=== PATIENT | male | born 2000 | race Asian ===

== ENCOUNTER 2021-09-29 21:55 | Inpatient (IN) | payer OTHER ==
[~2021-09-29] VITALS: Ht 160 cm; Wt 65.3 kg
[2021-09-29 22:00] VITALS: BP 112/76
[2021-09-30] MEDS ORDERED: PSYLLIUM SEED PACKET PO PRN
[2021-09-30] MEDS ORDERED: HYDRALAZINE 20MG/ML VIAL IV PRN
[2021-09-30] MEDS ORDERED: NALOXONE HCL 0.4 MG/ML 1ML VIAL IV PRN
[2021-09-30] MEDS ORDERED: NON FORMULARY PATIENT HOME MED XX SCH
[2021-09-30] MEDS ORDERED: ONDANSETRON HCL 4MG/2ML INJ IV PRN
[2021-09-30] MEDS ORDERED: OXYCODONE HCL 5MG TABLET PO PRN
[2021-09-30] MEDS ORDERED: CYCLOBENZAPRINE 10MG TABLET PO PRN
[2021-09-30] MEDS ORDERED: ACETAMINOPHEN 325MG TABLET PO PRN
[2021-09-30] MEDS ORDERED: HYDRALAZINE 10 MG in SODIUM CHLORIDE 0.9% 49.5 ML IV PRN (00:15)
[2021-09-30] MEDS ORDERED: HYDRALAZINE 5 MG in SODIUM CHLORIDE 0.9% 49.5 ML IV PRN (00:15)
[2021-09-30 06:33] LABS: CHLORIDE 103 mEq/L (98-107)
[2021-09-30 06:50] LABS: BASOPHILS % 1.1 % (0.0-2.0); EOSINOPHILS % 3.6 % (0.0-5.0); HEMATOCRIT. 39.5 % (42.0-52.0); HEMOGLOBIN. 13.8 g/dL (14.0-18.0); LYMPHOCYTES % 33.3 % (20.0-50.0); MEAN CORPUSCULAR HEMOGLOBIN 31.5 pg (28.0-32.0); MEAN CORPUSCULAR VOLUME 90.2 fL (80.0-94.0); MEAN PLATELET VOLUME 8.4 fl (7.4-10.4); MONOCYTES % 6.6 % (2.0-8.0); NEUTROPHILS % 55.4 % (40.0-76.0); PLATELET 304 x1000/uL (130-400); RED BLOOD CELL COUNT 4.37 mill/uL (4.7-6.1); RED CELL DISTRIBUTION WIDTH 14.3 % (11.6-14.6)
[2021-09-30 08:00] VITALS: BP 106/54
[2021-09-30] MEDS: QUETIAPINE FUMARATE 50MG TABLET PO SCH ×2 (08:32→20:30)
[2021-09-30] MEDS: PROPRANOLOL HCL 10MG TABLET PO SCH ×3 (08:38→17:00)
[2021-09-30] MEDS: ENOXAPARIN 30MG/0.3ML SYR SUBCUT SCH ×2 (11:53→20:30)
[2021-09-30 20:00] VITALS: BP 105/61
[2021-10-01] MEDS: BISACODYL 10MG SUPP PR PRN (05:50)
[2021-10-01 08:00] VITALS: BP 103/65
[2021-10-01] MEDS: PROPRANOLOL HCL 10MG TABLET PO SCH ×3 (09:00→17:00)
[2021-10-01] MEDS: QUETIAPINE FUMARATE 50MG TABLET PO SCH ×2 (09:51→20:07)
[2021-10-01] MEDS: ENOXAPARIN 30MG/0.3ML SYR SUBCUT SCH (09:53)
[2021-10-01] MEDS: POLYETHYLENE GLYCOL 3350 (17GM) 1 DOSE PACK PO PRN (09:53)
[2021-10-01 16:16] LABS: BASOPHILS % 1.5 % (0.0-2.0); EOSINOPHILS % 3.3 % (0.0-5.0); HEMATOCRIT. 41.2 % (42.0-52.0); HEMOGLOBIN. 13.9 g/dL (14.0-18.0); LYMPHOCYTES % 36.6 % (20.0-50.0); MEAN CORPUSCULAR HEMOGLOBIN 31.2 pg (28.0-32.0); MEAN CORPUSCULAR VOLUME 92.5 fL (80.0-94.0); MEAN PLATELET VOLUME 8.4 fl (7.4-10.4); MONOCYTES % 6.4 % (2.0-8.0); NEUTROPHILS % 52.2 % (40.0-76.0); PLATELET 270 x1000/uL (130-400); RED BLOOD CELL COUNT 4.45 mill/uL (4.7-6.1); RED CELL DISTRIBUTION WIDTH 14.4 % (11.6-14.6)
[2021-10-01 16:30] LABS: CHLORIDE 104 mEq/L (98-107)
[2021-10-01 16:46] LABS: TOTAL IRON BINDING CAPACITY 291 ug/dL (250-450)
[2021-10-01 17:01] LABS: FOLIC ACID (FOLATE) SERUM 18.3 ng/mL (>5.38)
[2021-10-01 20:00] VITALS: BP 103/60
[2021-10-02 08:00] VITALS: BP 117/54
[2021-10-02] MEDS: PROPRANOLOL HCL 10MG TABLET PO SCH ×3 (08:28→17:20)
[2021-10-02] MEDS: QUETIAPINE FUMARATE 50MG TABLET PO SCH ×2 (08:28→21:28)
[2021-10-02] MEDS: ENOXAPARIN 40MG/0.4ML SYR SUBCUT SCH (08:28)
[2021-10-02] MEDS: LACTULOSE 20G/30ML UDC PO SCH ×3 (10:01→17:19)
[2021-10-02 20:00] VITALS: BP 110/72
[2021-10-03 08:00] VITALS: BP 115/67
[2021-10-03] MEDS: QUETIAPINE FUMARATE 50MG TABLET PO SCH ×2 (08:26→21:43)
[2021-10-03] MEDS: ENOXAPARIN 40MG/0.4ML SYR SUBCUT SCH (08:27)
[2021-10-03] MEDS: PROPRANOLOL HCL 10MG TABLET PO SCH ×3 (08:27→17:42)
[2021-10-03 20:40] VITALS: BP 103/59
[2021-10-04 08:00] VITALS: BP 102/61
[2021-10-04] MEDS: QUETIAPINE FUMARATE 50MG TABLET PO SCH ×2 (08:31→21:38)
[2021-10-04] MEDS: PROPRANOLOL HCL 10MG TABLET PO SCH ×3 (08:31→16:54)
[2021-10-04] MEDS: ENOXAPARIN 40MG/0.4ML SYR SUBCUT SCH (08:32)
[2021-10-04 20:00] VITALS: BP 109/72
[2021-10-05 08:00] VITALS: BP 106/57
[2021-10-05] MEDS: QUETIAPINE FUMARATE 50MG TABLET PO SCH ×2 (09:39→20:31)
[2021-10-05] MEDS: ENOXAPARIN 40MG/0.4ML SYR SUBCUT SCH (09:40)
[2021-10-05] MEDS: PROPRANOLOL HCL 10MG TABLET PO SCH ×3 (09:40→17:11)
[2021-10-05 20:00] VITALS: BP 111/60
[2021-10-06 08:00] VITALS: BP 109/57
[2021-10-06] MEDS: QUETIAPINE FUMARATE 50MG TABLET PO SCH ×2 (09:44→20:44)
[2021-10-06] MEDS: PROPRANOLOL HCL 10MG TABLET PO SCH ×3 (09:44→17:00)
[2021-10-06] MEDS: ENOXAPARIN 40MG/0.4ML SYR SUBCUT SCH (09:45)
[2021-10-06 20:00] VITALS: BP 105/45
[2021-10-07 04:07] LABS: 25-HYDROXY VITAMIN D3 28 ng/mL (.)
[2021-10-07 06:38] LABS: BASOPHILS % 1.1 % (0.0-2.0); EOSINOPHILS % 5.4 % (0.0-5.0); HEMOGLOBIN. 13.8 g/dL (14.0-18.0); LYMPHOCYTES % 42.7 % (20.0-50.0); MEAN CORPUSCULAR HEMOGLOBIN 31.6 pg (28.0-32.0); MEAN CORPUSCULAR VOLUME 91.6 fL (80.0-94.0); MEAN PLATELET VOLUME 8.5 fl (7.4-10.4); MONOCYTES % 8.2 % (2.0-8.0); NEUTROPHILS % 42.6 % (40.0-76.0); PLATELET 229 x1000/uL (130-400); RED BLOOD CELL COUNT 4.36 mill/uL (4.7-6.1); RED CELL DISTRIBUTION WIDTH 14.1 % (11.6-14.6)
[2021-10-07] MEDS: BISACODYL 10MG SUPP PR PRN (06:46)
[2021-10-07 06:58] LABS: CHLORIDE 103 mEq/L (98-107)
[2021-10-07 08:00] VITALS: BP 110/68
[2021-10-07] MEDS: QUETIAPINE FUMARATE 50MG TABLET PO SCH ×2 (09:44→20:37)
[2021-10-07] MEDS: ENOXAPARIN 40MG/0.4ML SYR SUBCUT SCH (09:44)
[2021-10-07] MEDS: PROPRANOLOL HCL 10MG TABLET PO SCH ×3 (09:44→17:00)
[2021-10-07 20:00] VITALS: BP 112/48
[2021-10-08 08:00] VITALS: BP 122/65
[2021-10-08] MEDS: ENOXAPARIN 40MG/0.4ML SYR SUBCUT SCH (09:50)
[2021-10-08] MEDS: QUETIAPINE FUMARATE 50MG TABLET PO SCH ×2 (09:50→21:35)
[2021-10-08] MEDS: PROPRANOLOL HCL 10MG TABLET PO SCH ×4 (09:50→16:42)
[2021-10-08] MEDS: DOCUSATE SODIUM 250MG CAPSULE PO PRN (13:43)
[2021-10-08] MEDS: DOCUSATE SODIUM 100MG CAPSULE PO SCH ×2 (13:56→16:42)
[2021-10-08 20:00] VITALS: BP 129/56
[2021-10-08 20:09] VITALS: BP 129/56
[2021-10-09 08:00] VITALS: BP 112/66
[2021-10-09] MEDS: QUETIAPINE FUMARATE 50MG TABLET PO SCH ×2 (08:31→20:45)
[2021-10-09] MEDS: DOCUSATE SODIUM 100MG CAPSULE PO SCH ×2 (08:31→17:51)
[2021-10-09] MEDS: ENOXAPARIN 40MG/0.4ML SYR SUBCUT SCH (08:31)
[2021-10-09] MEDS: PROPRANOLOL HCL 10MG TABLET PO SCH ×3 (08:32→17:52)
[2021-10-09 20:00] VITALS: BP 127/82
[2021-10-10 06:44] LABS: HEMATOCRIT 43.1 % (42.0-52.0); HEMOGLOBIN 14.7 g/dL (14.0-18.0); MEAN CORPUSCULAR HEMOGLOBIN 31.2 pg (28.0-32.0); MEAN CORPUSCULAR VOLUME 91.2 fL (80.0-94.0); PLATELET 250 x1000/uL (130-400); RED BLOOD CELL COUNT 4.72 mill/uL (4.7-6.1); RED CELL DISTRIBUTION WIDTH 14.3 % (11.6-14.6)
[2021-10-10 07:46] LABS: CHLORIDE 102 mEq/L (98-107)
[2021-10-10 08:00] VITALS: BP 109/61
[2021-10-10] MEDS: DOCUSATE SODIUM 100MG CAPSULE PO SCH ×2 (09:00→18:14)
[2021-10-10] MEDS: DOCUSATE SODIUM 250MG CAPSULE PO PRN (09:34)
[2021-10-10] MEDS: PROPRANOLOL HCL 10MG TABLET PO SCH ×3 (09:34→18:14)
[2021-10-10] MEDS: ENOXAPARIN 40MG/0.4ML SYR SUBCUT SCH (09:34)
[2021-10-10] MEDS: QUETIAPINE FUMARATE 50MG TABLET PO SCH ×2 (09:34→22:03)
[2021-10-10 20:00] VITALS: BP 139/57
[2021-10-11 08:00] VITALS: BP 108/65
[2021-10-11] MEDS: PROPRANOLOL HCL 10MG TABLET PO SCH ×3 (09:00→18:00)
[2021-10-11] MEDS: DOCUSATE SODIUM 100MG CAPSULE PO SCH ×2 (09:00→18:04)
[2021-10-11] MEDS: DOCUSATE SODIUM 250MG CAPSULE PO PRN (09:30)
[2021-10-11] MEDS: QUETIAPINE FUMARATE 50MG TABLET PO SCH ×2 (09:32→20:48)
[2021-10-11] MEDS: ENOXAPARIN 40MG/0.4ML SYR SUBCUT SCH (09:33)
[2021-10-11 20:00] VITALS: BP 149/56
[2021-10-12 08:00] VITALS: BP 94/39
[2021-10-12] MEDS: ENOXAPARIN 40MG/0.4ML SYR SUBCUT SCH (08:57)
[2021-10-12] MEDS: DOCUSATE SODIUM 100MG CAPSULE PO SCH ×2 (08:58→18:06)
[2021-10-12] MEDS: QUETIAPINE FUMARATE 50MG TABLET PO SCH ×2 (08:58→20:48)
[2021-10-12] MEDS: PROPRANOLOL HCL 10MG TABLET PO SCH ×3 (08:59→17:00)
[2021-10-12 09:35] VITALS: BP 94/39
[2021-10-12 20:08] VITALS: BP 116/68
[2021-10-12] MEDS: SENNOSIDES 8.6MG TABLET PO PRN (20:48)
[2021-10-13 08:00] VITALS: BP 103/51
[2021-10-13] MEDS: ENOXAPARIN 40MG/0.4ML SYR SUBCUT SCH (09:11)
[2021-10-13] MEDS: QUETIAPINE FUMARATE 50MG TABLET PO SCH ×2 (09:12→20:46)
[2021-10-13] MEDS: DOCUSATE SODIUM 100MG CAPSULE PO SCH ×2 (09:12→17:47)
[2021-10-13] MEDS: PROPRANOLOL HCL 10MG TABLET PO SCH ×3 (09:12→17:54)
[2021-10-13 20:00] VITALS: BP 106/65
[2021-10-14 08:02] VITALS: BP 117/66
[2021-10-14] MEDS: QUETIAPINE FUMARATE 50MG TABLET PO SCH ×2 (09:00→21:29)
[2021-10-14] MEDS: DOCUSATE SODIUM 100MG CAPSULE PO SCH ×2 (09:00→17:17)
[2021-10-14] MEDS: ENOXAPARIN 40MG/0.4ML SYR SUBCUT SCH (09:01)
[2021-10-14] MEDS: PROPRANOLOL HCL 10MG TABLET PO SCH ×3 (09:01→17:17)
[2021-10-14 20:00] VITALS: BP 102/42
[2021-10-15 07:56] VITALS: BP 96/48
[2021-10-15] MEDS: PROPRANOLOL HCL 10MG TABLET PO SCH ×3 (09:00→17:00)
[2021-10-15] MEDS: DOCUSATE SODIUM 100MG CAPSULE PO SCH ×2 (09:01→17:49)
[2021-10-15] MEDS: QUETIAPINE FUMARATE 50MG TABLET PO SCH ×2 (09:01→20:55)
[2021-10-15] MEDS: ENOXAPARIN 40MG/0.4ML SYR SUBCUT SCH (09:02)
[2021-10-15 20:00] VITALS: BP 125/66
[2021-10-16 07:59] VITALS: BP 100/56
[2021-10-16] MEDS: DOCUSATE SODIUM 100MG CAPSULE PO SCH ×2 (08:46→17:00)
[2021-10-16] MEDS: QUETIAPINE FUMARATE 50MG TABLET PO SCH ×2 (08:46→20:53)
[2021-10-16] MEDS: PROPRANOLOL HCL 10MG TABLET PO SCH ×4 (08:46→17:00)
[2021-10-16] MEDS: ENOXAPARIN 40MG/0.4ML SYR SUBCUT SCH (08:48)
[2021-10-16 20:00] VITALS: BP 115/49
[2021-10-16] MEDS: SENNOSIDES 8.6MG TABLET PO PRN (20:53)
[2021-10-17 07:59] VITALS: BP 99/49
[2021-10-17] MEDS: ENOXAPARIN 40MG/0.4ML SYR SUBCUT SCH (09:00)
[2021-10-17] MEDS: QUETIAPINE FUMARATE 50MG TABLET PO SCH ×2 (09:16→21:30)
[2021-10-17] MEDS: DOCUSATE SODIUM 100MG CAPSULE PO SCH ×2 (09:16→17:28)
[2021-10-17] MEDS: PROPRANOLOL HCL 10MG TABLET PO SCH ×3 (09:17→17:29)
[2021-10-17 20:00] VITALS: BP 105/57
[2021-10-18 06:41] LABS: HEMATOCRIT 42.5 % (42.0-52.0); HEMOGLOBIN 14.4 g/dL (14.0-18.0); MEAN CORPUSCULAR HEMOGLOBIN 31.1 pg (28.0-32.0); MEAN CORPUSCULAR VOLUME 91.6 fL (80.0-94.0); PLATELET 306 x1000/uL (130-400); RED BLOOD CELL COUNT 4.64 mill/uL (4.7-6.1); RED CELL DISTRIBUTION WIDTH 13.8 % (11.6-14.6)
[2021-10-18 06:46] LABS: CHLORIDE 104 mEq/L (98-107)
[2021-10-18 08:00] VITALS: BP 122/77
[2021-10-18] MEDS: PROPRANOLOL HCL 10MG TABLET PO SCH ×3 (09:03→16:28)
[2021-10-18] MEDS: DOCUSATE SODIUM 100MG CAPSULE PO SCH ×2 (09:03→16:27)
[2021-10-18] MEDS: ENOXAPARIN 40MG/0.4ML SYR SUBCUT SCH (09:04)
[2021-10-18] MEDS: QUETIAPINE FUMARATE 50MG TABLET PO SCH ×2 (09:04→22:11)
[2021-10-18 20:00] VITALS: BP 128/81
[2021-10-19 08:00] VITALS: BP 113/63
[2021-10-19] MEDS: PROPRANOLOL HCL 10MG TABLET PO SCH ×3 (08:47→16:35)
[2021-10-19] MEDS: QUETIAPINE FUMARATE 50MG TABLET PO SCH ×2 (08:47→20:26)
[2021-10-19] MEDS: DOCUSATE SODIUM 100MG CAPSULE PO SCH ×2 (08:47→16:33)
[2021-10-19] MEDS: ENOXAPARIN 40MG/0.4ML SYR SUBCUT SCH (08:48)
[2021-10-19 19:44] VITALS: BP 115/59
[2021-10-20 08:00] VITALS: BP 116/58
[2021-10-20] MEDS: ENOXAPARIN 40MG/0.4ML SYR SUBCUT SCH (09:18)
[2021-10-20] MEDS: DOCUSATE SODIUM 100MG CAPSULE PO SCH ×2 (09:18→16:57)
[2021-10-20] MEDS: PROPRANOLOL HCL 10MG TABLET PO SCH ×3 (09:18→16:58)
[2021-10-20] MEDS: QUETIAPINE FUMARATE 50MG TABLET PO SCH ×2 (09:18→20:11)
[2021-10-20 20:00] VITALS: BP 109/65
[2021-10-21 08:00] VITALS: BP 113/67
[2021-10-21] MEDS: DOCUSATE SODIUM 100MG CAPSULE PO SCH ×2 (09:36→17:38)
[2021-10-21] MEDS: PROPRANOLOL HCL 10MG TABLET PO SCH ×3 (09:37→17:00)
[2021-10-21] MEDS: QUETIAPINE FUMARATE 50MG TABLET PO SCH ×2 (09:37→21:21)
[2021-10-21] MEDS: ENOXAPARIN 40MG/0.4ML SYR SUBCUT SCH (09:38)
[2021-10-21] MEDS: POLYETHYLENE GLYCOL 3350 (17GM) 1 DOSE PACK PO PRN (17:43)
[2021-10-21 20:00] VITALS: BP 97/55
[2021-10-22 08:00] VITALS: BP 120/43
[2021-10-22] MEDS: PROPRANOLOL HCL 10MG TABLET PO SCH ×3 (09:15→17:58)
[2021-10-22] MEDS: DOCUSATE SODIUM 100MG CAPSULE PO SCH ×2 (09:15→17:57)
[2021-10-22] MEDS: ENOXAPARIN 40MG/0.4ML SYR SUBCUT SCH (09:16)
[2021-10-22] MEDS: QUETIAPINE FUMARATE 50MG TABLET PO SCH ×2 (09:17→21:12)
[2021-10-22 20:00] VITALS: BP 117/74
[2021-10-23 08:00] VITALS: BP 103/56
[2021-10-23] MEDS: QUETIAPINE FUMARATE 50MG TABLET PO SCH ×2 (09:00→20:39)
[2021-10-23] MEDS: DOCUSATE SODIUM 100MG CAPSULE PO SCH ×2 (09:00→17:44)
[2021-10-23] MEDS: PROPRANOLOL HCL 10MG TABLET PO SCH ×3 (09:00→17:00)
[2021-10-23] MEDS: ENOXAPARIN 40MG/0.4ML SYR SUBCUT SCH (09:02)
[2021-10-23] MEDS: POLYETHYLENE GLYCOL 3350 (17GM) 1 DOSE PACK PO PRN (17:43)
[2021-10-23 20:00] VITALS: BP 118/64
[2021-10-24 08:00] VITALS: BP 105/54
[2021-10-24] MEDS: DOCUSATE SODIUM 100MG CAPSULE PO SCH ×2 (08:41→16:24)
[2021-10-24] MEDS: QUETIAPINE FUMARATE 50MG TABLET PO SCH ×2 (08:41→23:15)
[2021-10-24] MEDS: ENOXAPARIN 40MG/0.4ML SYR SUBCUT SCH (08:42)
[2021-10-24] MEDS: PROPRANOLOL HCL 10MG TABLET PO SCH ×3 (08:45→16:25)
[2021-10-24 20:21] VITALS: BP 122/68
[2021-10-25 08:00] VITALS: BP 126/68
[2021-10-25] MEDS: DOCUSATE SODIUM 100MG CAPSULE PO SCH ×2 (08:26→16:56)
[2021-10-25] MEDS: QUETIAPINE FUMARATE 50MG TABLET PO SCH ×2 (08:27→20:27)
[2021-10-25] MEDS: PROPRANOLOL HCL 10MG TABLET PO SCH ×3 (08:27→16:25)
[2021-10-25] MEDS: ENOXAPARIN 40MG/0.4ML SYR SUBCUT SCH (08:28)
[2021-10-25] MEDS ORDERED: HYDRALAZINE 5 MG in SODIUM CHLORIDE 0.9% 49.75 ML IV PRN (10:54)
[2021-10-25] MEDS: ERGOCALCIFEROL 50000UNITS CAPSULE PO SCH (16:56)
[2021-10-25 20:00] VITALS: BP 126/68
[2021-10-26 08:00] VITALS: BP 114/65
[2021-10-26] MEDS: ENOXAPARIN 40MG/0.4ML SYR SUBCUT SCH (08:44)
[2021-10-26] MEDS: QUETIAPINE FUMARATE 50MG TABLET PO SCH ×2 (08:45→21:27)
[2021-10-26] MEDS: DOCUSATE SODIUM 100MG CAPSULE PO SCH ×2 (08:45→17:00)
[2021-10-26] MEDS: PROPRANOLOL HCL 10MG TABLET PO SCH ×3 (08:45→17:00)
[2021-10-26 20:00] VITALS: BP 81/41
[2021-10-27 07:31] LABS: BASOPHILS % 0.6 % (0.0-2.0); EOSINOPHILS % 3.4 % (0.0-5.0); HEMATOCRIT. 44.1 % (42.0-52.0); LYMPHOCYTES % 37.4 % (20.0-50.0); MEAN CORPUSCULAR HEMOGLOBIN 30.7 pg (28.0-32.0); MEAN CORPUSCULAR VOLUME 90.2 fL (80.0-94.0); MEAN PLATELET VOLUME 7.7 fl (7.4-10.4); MONOCYTES % 7.8 % (2.0-8.0); NEUTROPHILS % 50.8 % (40.0-76.0); PLATELET 341 x1000/uL (130-400); RED BLOOD CELL COUNT 4.89 mill/uL (4.7-6.1); RED CELL DISTRIBUTION WIDTH 13.6 % (11.6-14.6)
[2021-10-27 08:00] VITALS: BP 114/77
[2021-10-27 08:09] LABS: CHLORIDE 101 mEq/L (98-107)
[2021-10-27] MEDS: DOCUSATE SODIUM 100MG CAPSULE PO SCH ×2 (09:38→17:00)
[2021-10-27] MEDS: PROPRANOLOL HCL 10MG TABLET PO SCH ×3 (09:38→17:00)
[2021-10-27] MEDS: QUETIAPINE FUMARATE 50MG TABLET PO SCH ×2 (09:38→20:53)
[2021-10-27] MEDS: ENOXAPARIN 40MG/0.4ML SYR SUBCUT SCH (09:39)
[2021-10-27 20:16] VITALS: BP 135/89
[2021-10-28 08:00] VITALS: BP 114/69
[2021-10-28] MEDS: QUETIAPINE FUMARATE 50MG TABLET PO SCH ×2 (08:59→20:20)
[2021-10-28] MEDS: DOCUSATE SODIUM 100MG CAPSULE PO SCH ×2 (08:59→16:05)
[2021-10-28] MEDS: PROPRANOLOL HCL 10MG TABLET PO SCH (09:00)
[2021-10-28] MEDS: ENOXAPARIN 40MG/0.4ML SYR SUBCUT SCH (09:00)
[2021-10-28 19:56] VITALS: BP 127/54
[2021-10-29 08:00] VITALS: BP 110/57
[2021-10-29] MEDS: DOCUSATE SODIUM 100MG CAPSULE PO SCH ×2 (09:20→16:53)
[2021-10-29] MEDS: QUETIAPINE FUMARATE 50MG TABLET PO SCH ×2 (09:27→21:00)
[2021-10-29] MEDS: ENOXAPARIN 40MG/0.4ML SYR SUBCUT SCH (09:28)
[2021-10-29 20:00] VITALS: BP 117/52
[2021-10-30 07:51] VITALS: BP 111/71
[2021-10-30] MEDS: QUETIAPINE FUMARATE 50MG TABLET PO SCH ×2 (09:01→21:22)
[2021-10-30] MEDS: DOCUSATE SODIUM 100MG CAPSULE PO SCH ×2 (09:01→17:39)
[2021-10-30] MEDS: ENOXAPARIN 40MG/0.4ML SYR SUBCUT SCH (09:02)
[2021-10-30 20:00] VITALS: BP 111/72
[2021-10-31 08:00] VITALS: BP 106/76
[2021-10-31] MEDS: DOCUSATE SODIUM 100MG CAPSULE PO SCH ×2 (08:48→16:38)
[2021-10-31] MEDS: QUETIAPINE FUMARATE 50MG TABLET PO SCH ×2 (08:48→21:38)
[2021-10-31] MEDS: ENOXAPARIN 40MG/0.4ML SYR SUBCUT SCH (08:48)
[2021-10-31 20:20] VITALS: BP 117/86
[2021-11-01 06:01] LABS: BASOPHILS % 0.6 % (0.0-2.0); EOSINOPHILS % 4.3 % (0.0-5.0); HEMOGLOBIN. 14.8 g/dL (14.0-18.0); LYMPHOCYTES % 40.3 % (20.0-50.0); MEAN CORPUSCULAR HEMOGLOBIN 31.3 pg (28.0-32.0); MEAN CORPUSCULAR VOLUME 92.9 fL (80.0-94.0); MEAN PLATELET VOLUME 7.5 fl (7.4-10.4); MONOCYTES % 7.8 % (2.0-8.0); PLATELET 348 x1000/uL (130-400); RED BLOOD CELL COUNT 4.73 mill/uL (4.7-6.1); RED CELL DISTRIBUTION WIDTH 13.6 % (11.6-14.6)
[2021-11-01 06:26] LABS: CHLORIDE 103 mEq/L (98-107)
[2021-11-01 08:00] VITALS: BP 105/70
[2021-11-01] MEDS: ENOXAPARIN 40MG/0.4ML SYR SUBCUT SCH (08:37)
[2021-11-01] MEDS: ERGOCALCIFEROL 50000UNITS CAPSULE PO SCH (08:37)
[2021-11-01] MEDS: QUETIAPINE FUMARATE 50MG TABLET PO SCH ×2 (08:37→22:02)
[2021-11-01] MEDS: DOCUSATE SODIUM 100MG CAPSULE PO SCH ×2 (08:37→17:03)
[2021-11-01 20:00] VITALS: BP 116/67
[2021-11-02 08:00] VITALS: BP 109/69
[2021-11-02] MEDS: DOCUSATE SODIUM 100MG CAPSULE PO SCH ×2 (08:49→16:09)
[2021-11-02] MEDS: QUETIAPINE FUMARATE 50MG TABLET PO SCH ×2 (08:49→22:37)
[2021-11-02] MEDS: ENOXAPARIN 40MG/0.4ML SYR SUBCUT SCH (08:50)
[2021-11-02 20:50] VITALS: BP 103/42
[2021-11-03 08:00] VITALS: BP 118/75
[2021-11-03] MEDS: DOCUSATE SODIUM 100MG CAPSULE PO SCH ×2 (08:35→17:35)
[2021-11-03] MEDS: QUETIAPINE FUMARATE 50MG TABLET PO SCH ×2 (08:35→21:46)
[2021-11-03] MEDS: ENOXAPARIN 40MG/0.4ML SYR SUBCUT SCH (08:36)
[2021-11-03 20:00] VITALS: BP 110/70
[2021-11-04 08:00] VITALS: BP 122/79
[2021-11-04] MEDS ORDERED: QUET50TA PO (08:53)
[2021-11-04] MEDS: DOCUSATE SODIUM 100MG CAPSULE PO SCH (08:56)
[2021-11-04] MEDS: ENOXAPARIN 40MG/0.4ML SYR SUBCUT SCH (08:56)
[2021-11-04] MEDS: QUETIAPINE FUMARATE 50MG TABLET PO SCH (08:56)
[2021-11-04 13:24] VITALS: BP 122/79
== END 2021-11-04 16:00 | disposition home or self-care (01) | DRG 55 ==
PROVIDERS: ADMIT Physical Medicine & Rehabilitation Spinal Cord Injury Medicine; ATTEND Physical Medicine & Rehabilitation Spinal Cord Injury Medicine
DX: S06.5X9A Traumatic subdural hemorrhage with loss of consciousness of unspecified duration, initial encounter (principal); J96.00 Acute respiratory failure, unspecified whether with hypoxia or hypercapnia; G93.40 Encephalopathy, unspecified; E72.20 Disorder of urea cycle metabolism, unspecified; D64.9 Anemia, unspecified; F10.20 Alcohol dependence, uncomplicated; E55.9 Vitamin D deficiency, unspecified; S19.89XA Other specified injuries of other specified part of neck, initial encounter; S52.515A Nondisplaced fracture of left radial styloid process, initial encounter for closed fracture; H57.04 Mydriasis; R13.10 Dysphagia, unspecified; S06.6X9A Traumatic subarachnoid hemorrhage with loss of consciousness of unspecified duration, initial encounter; S00.81XA Abrasion of other part of head, initial encounter; R53.81 Other malaise; R26.89 Other abnormalities of gait and mobility; R26.81 Unsteadiness on feet; M21.372 Foot drop, left foot; Y90.9 Presence of alcohol in blood, level not specified; R40.2430 Glasgow coma scale score 3-8, unspecified time; K59.00 Constipation, unspecified; V89.2XXA Person injured in unspecified motor-vehicle accident, traffic, initial encounter; Y93.89 Activity, other specified; Y92.89 Other specified places as the place of occurrence of the external cause; Y99.8 Other external cause status
CPT/HCPCS: 36415; 70551; 72141; 73120; 80048; 80053; 82140; 82306; 82607; 82728; 82746; 83540; 83550; 84134; 84443; 85025; 85027; 92523; 92610; 93970; 97110; 97112; 97116; 97163; 97167; 97530; 97535; 97542; 97760; J1650